=== PATIENT | female | born 1950 ===

== ENCOUNTER 2018-07-24 09:06 | Emergency (ER) | payer OTHER ==
[2018-07-24 10:11] VITALS: BP 135/71
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
--- NOTE | 2018-07-24 10:53 | RAD ---
HISTORY: pain post injury COMPARISONS: None VIEWS: 4 , Frontal internal rotation, external rotation, outlet, and axillary views of the right shoulder FINDINGS: BONE DENSITY: Normal. BONES: There is an overriding fracture of the mid third of the right clavicle with approximately 2.8 cm of overlap. JOINTS: There is mild glenohumeral osteoarthritis. ALIGNMENT: There is no dislocation. SOFT TISSUES: Unremarkable. OTHER FINDINGS: None. IMPRESSION: OVERRIDING FRACTURE OF THE MID THIRD OF THE RIGHT CLAVICLE.
== END 2018-07-24 11:39 | disposition home or self-care (01) ==
LOC: UCCORT 09:06
DX: S42.001A Fracture of unspecified part of right clavicle, initial encounter for closed fracture (principal); V03.09XA Pedestrian with other conveyance injured in collision with car, pick-up truck or van in nontraffic accident, initial encounter; Y93.H2 Activity, gardening and landscaping; Y92.9 Unspecified place or not applicable
CPT/HCPCS: 71046; 99202; G0463

== ENCOUNTER → 2018-07-29 11:49 | Day surgery (SDC) | payer OTHER ==
[~2018-07-29 11:49] MED LIST: Acetaminophen IV 1GM/100ML * 100 ML ONE; Buffered Lidocaine 0.9% SYRIN* 5 ML/SYR SYRINGE INTRADERM ONE; Buffered Lidocaine 0.9% SYRIN* 5 ML/SYR SYRINGE ONE; Dexamethasone IV* 4 MG/ML 1 ML (4 MG) ONE; Glycopyrrolate IV* 0.2 MG/ML 1 ML VIAL ONE; Ketorolac INJ* 30 MG/ML 1 ML VIAL ONE; Lidocaine 2% PF * 5 ML VIAL ONE; Metoclopramide IV* 5 MG/ML 2 ML VIAL ONE; Midazolam* 1 MG/ML 2 ML VIAL (2 MG) ONE; Naloxone* 0.4 MG/ML 1 ML VIAL IV PRN; Neostigmine Methylsulfate* 2 MG/2 ML SYRINGE ONE; Ondansetron INJ* 2 MG/ML VIAL IV PRN; Ondansetron INJ* 2 MG/ML VIAL ONE; Phenylephrine INJ* 10 MG/ML 1 ML VIAL (10 MG) ONE; Propofol* 10 MG/ML 20 ML BTL IV PUSH ONE; ROPIVACAINE 5 MG/ML 30 ML BTL (0.5%) ONE; Rocuronium* 10 MG/ML VIAL ONE; ceFAZolin 2 GM in NS PREMIX(*) 2 GM/100 ML BAG IVPB ONE; fentaNYL* 50 MCG/ML 2 ML VIAL (100 MCG VIAL) IV PRN; fentaNYL* 50 MCG/ML 2 ML VIAL (100 MCG VIAL) ONE
[2018-07-29 19:06] VITALS: BP 121/66
--- NOTE | 2018-07-30 07:39 | RAD ---
INDICATION: Right clavicle ORIF nondisplaced fracture of clavicle COMPARISONS: November 26, 2017 TECHNIQUE: Fluoroscopy was provided for a surgical procedure. Total fluoroscopy time is: 4.5 seconds FINDINGS: Spot images demonstrate internal fixation of the clavicle. IMPRESSION: FLUOROSCOPY WAS PROVIDED FOR A SURGICAL PROCEDURE CPT II Codes: G9500
--- NOTE | 2018-07-30 08:50 | OP ---
DATE OF OPERATION: 07/29/18 - [facility] DATE OF : 54 SURGEON: Jim Leal MD ASSISTANTS: MINH Driscoll; MINH Carcamo. Assistants were needed for the procedure to aid in positioning of the arm, retraction, and instrumentation. ANESTHESIOLOGIST: Dr. Steen. ANESTHESIA: General. PRE-OP DIAGNOSIS: Right mid-shaft displaced and shortened clavicle fracture. POST-OP DIAGNOSIS: Right mid-shaft displaced and shortened clavicle fracture. OPERATIVE PROCEDURE: Right open reduction and internal fixation, right mid clavicle multi-fragmentary displaced and shortened clavicle fracture. INDICATIONS: Michelle has the aforementioned fracture. It looks like it was a couple of centimeters shortened on the imaging. We talked about treatment options. They had elected to proceed with surgery. ESTIMATED BLOOD LOSS: 5 mL. COMPLICATIONS: None. FINDINGS: See above and below. DESCRIPTION OF PROCEDURE: Michelle was seen in the preoperative holding area. The correct side, site and procedure were identified. She had a block placed. We came back to the operating room. She was positioned in the lazy beach-chair position. The arm was then prepped and draped in the usual fashion. I began by making a curvilinear incision over the anterior aspect of the clavicle. Dissection was carried down and the clavipectoral fascia was incised and the fracture was exposed and fracture margins were debrided of the fracture hematoma with the Montilla tip and the curette and the freer elevator. I then used a point of reduction clamp to reduce the fracture. There was an anterior butterfly fragment, which was also clamped back into place with the point of reduction clamp. I then placed three Synthes 2.0 mm cortical lag screws to secure both the oblique fracture and then the butterfly fragment as well. Once everything was secured into place, I then brought in my Synthes 2.4 mm Recon plate off the locking margin of the mini set. This was bent, twist, and arched to contour to the anterior clavicle, which was clamped into place and then secured with cortical screws proximally and distally. I then brought in a 2.0 mm Recon plate and placed this superiorly. This was contoured to the bone. This was secured with two cortical screws distally and two cortical screws proximally. At this point, everything was looking good, so we confirmed with final fluoroscopic imaging, the screw length, the plate position and looked appropriate. The reduction was anatomic. We closed the clavipectoral fascia with 3-0 Vicryl suture. The skin was closed with 3-0 Monocryl suture. No Marcaine was infiltrated as the patient had a block. The wounds were dressed with Steri-Strips and then some 4x4's and then Tegaderm. She was then woken up and taken to the recovery room in stable condition. [id number]/[facility] #: [id number] [place]
== END | disposition home or self-care (01) ==
LOC: OR 11:49
PROVIDERS: ATTEND Orthopaedic Surgery Hand Surgery
DX: S42.021A Displaced fracture of shaft of right clavicle, initial encounter for closed fracture (principal); I10 Essential (primary) hypertension; V03.09XA Pedestrian with other conveyance injured in collision with car, pick-up truck or van in nontraffic accident, initial encounter; Y92.9 Unspecified place or not applicable
CPT/HCPCS: 76001; C1713; C1776; J0690; J1100; J1885; J2250; J2405; J2704; J2765; J2795; J3010